=== PATIENT | female | born 1970 | race Caucasian/White ===

== ENCOUNTER 2024-11-25 12:47 | Emergency (ER) | payer OTHER ==
[2024-11-25] MEDS ORDERED: Sodium Chloride 0.9% 10 ML Syringe FLUSH PRN (13:19)
[2024-11-25] MEDS: Ketorolac 30 MG/ML SDV IVPUSH ONE (13:28)
[2024-11-25] MEDS: Sodium Chloride 0.9% 1,000 ML IV ONE (13:28)
[2024-11-25] MEDS: Ondansetron 4 MG/2 ML SDV IVPUSH ONE ×2 (13:29→14:36)
[2024-11-25 13:41] LABS: BLOOD UREA NITROGEN,BUN 10 mg/dL (7-18); BUN/CREATININE RATIO 12.5 (9-20); CALCIUM 9.4 mg/dL (8.6-10.2); CARBON DIOXIDE,CO2 27 mmol/L (21-32); CHLORIDE,CL 106 mmol/L (100-110); CREATININE 0.8 mg/dL (0.55-1.02); EST CRCL DRUG DOSING (CG) 68.05 mL/min; ESTIMATED GFR 89 mL/min (>60); GLUCOSE RANDOM 121 mg/dL (80-116); POTASSIUM,K 4.1 mmol/L (3.5-5.3); SODIUM,NA 141 mmol/L (135-145)
[2024-11-25 13:44] LABS: C-REACTIVE PROTEIN 0.85 mg/dL (<0.50)
[2024-11-25 13:46] LABS: BASOPHILS PERCENT AUTO 0.2 % (0.2-1.5); EOSINOPHILS ABSOLUTE AUTO 0.2 x10-3/uL (0.0-0.8); EOSINOPHILS PERCENT AUTO 4.2 % (0.6-8.1); HEMATOCRIT 42.8 % (34.2-48.2); HEMOGLOBIN 14.7 g/dL (11.4-15.5); LYMPHOCYTES ABSOLUTE AUTO 1.4 x10-3/uL (1.0-4.4); LYMPHOCYTES PERCENT AUTO 29.4 % (18.4-52.1); MEAN CORPUSCULAR HEMOGLOBIN 30.3 pg (23.9-33.9); MEAN CORPUSCULAR HGB CONC 34.4 g/dL (31.9-34.8); MEAN CORPUSCULAR VOLUME 88.2 fL (76.7-100.5); MEAN PLATELET VOLUME 8.7 fL (7.1-12.4); MONOCYTES ABSOLUTE AUTO 0.6 x10-3/uL (0.3-1.0); MONOCYTES PERCENT AUTO 12.4 % (4.4-15.7); NEUTROPHILS ABSOLUTE AUTO 2.5 x10-3/uL (1.5-6.3); NEUTROPHILS PERCENT AUTO 53.7 % (30.8-76.2); PLATELET COUNT,PLT 225 x10(3)uL (151-488); RED BLOOD CELL COUNT 4.85 x10(6)uL (3.60-5.20); RED CELL DISTRIBUTION WIDTH 13.2 % (12.3-16.5); WHITE BLOOD CELL COUNT,WBC 4.6 x10-3/uL (3.0-10.3)
[2024-11-25 13:47] LABS: A/G RATIO 0.9; ALANINE AMINOTRANSFERASE,ALT 26 U/L (12-36); ALBUMIN 3.3 g/dL (3.5-5.2); ALKALINE PHOSPHATASE 88 IU/L (56-112); ASPARTATE AMNIOTRANSFERASE,AST 15 IU/L (5-25); BILIRUBIN TOTAL 0.3 mg/dL (0.1-1.3); PROTEIN TOTAL,TP 6.9 g/dL (6.0-8.0)
[2024-11-25 13:51] LABS: LACTIC ACID 1.4 mmol/L (0.4-2.0)
[2024-11-25] MEDS: Morphine 2 MG/ML SYRINGE IVPUSH ONE (14:37)
[2024-11-25] MEDS: valACYclovir 500 MG Tab PO ONE (14:39)
[2024-11-25 15:21] LABS: APPEARANCE,URINE CLEAR (CLEAR); BILIRUBIN,URINE NEGATIVE (NEGATIVE); COLOR,URINE YELLOW (YELLOW); GLUCOSE,URINE NORMAL (NORMAL); KETONES,URINE NEGATIVE (NEGATIVE); LEUKOCYTE ESTERASE,URINE NEGATIVE (NEGATIVE); NITRITE,URINE NEGATIVE (NEGATIVE); OCCULT BLOOD,URINE NEGATIVE (NEGATIVE); PROTEIN,URINE NEGATIVE (NEGATIVE); UROBILINOGEN,URINE NORMAL (NEGATIVE)
== END 2024-11-25 16:05 | disposition home or self-care (01) ==
LOC: FB.ED 12:47
DX: K63.89 Other specified diseases of intestine (principal); B02.9 Zoster without complications; Z88.8 Allergy status to other drugs, medicaments and biological substances; Z91.048 Other nonmedicinal substance allergy status; Z90.49 Acquired absence of other specified parts of digestive tract; Z90.710 Acquired absence of both cervix and uterus; Z87.891 Personal history of nicotine dependence
CPT/HCPCS: 74176; 80053; 81003; 83605; 83690; 85025; 86140; 96361; 96374; 96375; 96376; 99283; 99284-25; A9270-GY; J1885; J2270; J2405; J7030

== ENCOUNTER 2025-07-15 09:54 | Emergency (ER) | payer OTHER ==
[2025-07-15] MEDS: Sodium Chloride 0.9% 10 ML Syringe FLUSH PRN (10:25)
[2025-07-15 11:07] LABS: BASOPHILS ABSOLUTE AUTO 0.0 x10-3/uL (0.0-0.1); BASOPHILS PERCENT AUTO 0.8 % (0.2-1.5); BLOOD UREA NITROGEN,BUN 10 mg/dL (7-18); CARBON DIOXIDE,CO2 27 mmol/L (21-32); CHLORIDE,CL 108 mmol/L (100-110); CREATININE 0.6 mg/dL (0.55-1.02); EOSINOPHILS ABSOLUTE AUTO 0.1 x10-3/uL (0.0-0.8); EOSINOPHILS PERCENT AUTO 1.5 % (0.6-8.1); EST CRCL DRUG DOSING (CG) 89.70 mL/min; ESTIMATED GFR 107 mL/min (>60); GLUCOSE RANDOM 101 mg/dL (80-116); LYMPHOCYTES ABSOLUTE AUTO 1.5 x10-3/uL (1.0-4.4); LYMPHOCYTES PERCENT AUTO 37.0 % (18.4-52.1); MEAN PLATELET VOLUME 9.4 fL (7.1-12.4); MONOCYTES ABSOLUTE AUTO 0.5 x10-3/uL (0.3-1.0); MONOCYTES PERCENT AUTO 12.7 % (4.4-15.7); NEUTROPHILS ABSOLUTE AUTO 2.0 x10-3/uL (1.5-6.3); NEUTROPHILS PERCENT AUTO 48.0 % (30.8-76.2); PLATELET COUNT,PLT 209 x10(3)uL (151-488); POTASSIUM,K 4.2 mmol/L (3.5-5.3); RED BLOOD CELL COUNT 5.25 x10(6)uL (3.60-5.20); RED CELL DISTRIBUTION WIDTH 13.8 % (12.3-16.5); SODIUM,NA 143 mmol/L (135-145); WHITE BLOOD CELL COUNT,WBC 4.1 x10-3/uL (3.0-10.3)
[2025-07-15 11:13] LABS: A/G RATIO 1.1; ALANINE AMINOTRANSFERASE,ALT 34 U/L (12-36); ASPARTATE AMNIOTRANSFERASE,AST 22 IU/L (5-25); BILIRUBIN TOTAL 0.5 mg/dL (0.1-1.3); PROTEIN TOTAL,TP 7.2 g/dL (6.0-8.0)
[2025-07-15] MEDS: Ondansetron 4 MG/2 ML SDV IVPUSH ONE (11:25)
[2025-07-15] MEDS: Nitroglycerin 0.4 MG Tab.SL SL PRN (11:27)
[2025-07-15] MEDS ORDERED: Naloxone 0.4 MG/ML SDV IVPUSH PRN (11:36)
[2025-07-15] MEDS: Iopamidol 755 Mg/ML 100 ML Bottle IV SCH (12:03)
== END 2025-07-15 14:55 | disposition home or self-care (01) ==
LOC: FB.ED 09:54
DX: R07.9 Chest pain, unspecified (principal); Z90.49 Acquired absence of other specified parts of digestive tract; Z90.710 Acquired absence of both cervix and uterus; Z87.891 Personal history of nicotine dependence; Z91.048 Other nonmedicinal substance allergy status
CPT/HCPCS: 36415; 71045; 71045-26; 71275; 71275-26; 80053; 83735; 84484; 85025; 85379; 86140; 93005; 96361; 96374; 96375; 99285-25; A9270-GY; J2270; J2405; J7030; Q9967